=== PATIENT | male | born 1985 | race Caucasian/White ===

== ENCOUNTER 2018-06-30 19:35 | Inpatient (IN) | payer MEDICAID ==
[~2018-06-30] VITALS: Ht 188 cm; Wt 109.9 kg
[2018-06-30 21:47] LABS: BASOPHILS % (AUTO) 1.1 % (0.0-2.0); EOSINOPHILS % (AUTO) 1.1 % (1.0-6.0); HEMATOCRIT 45.5 % (41-53); HEMOGLOBIN 14.9 g/dL (13.5-17.5); LYMPHOCYTES % (AUTO) 20.4 % (22.0-44.0); MEAN CORPUSCULAR HEMOGLOBIN 27.3 pg (26.0-34.0); MEAN CORPUSCULAR HGB CONC 32.8 G/dL (31.0-37.0); MEAN CORPUSCULAR VOLUME 83 fL (80-100); MONOCYTES # (AUTO) 1.3 K/uL (0.1-1.0); MONOCYTES % (AUTO) 8.9 % (2.0-9.0); NEUTROPHILS # (AUTO) 10.2 K/uL (1.8-7.7); NEUTROPHILS % (AUTO) 68.5 % (40.0-70.0); PLATELET COUNT (AUTO) 335 K/uL (150-450); RED BLOOD CELL COUNT(AUTO) 5.47 MIL/uL (4.50-5.90); RED CELL DISTRIBUTION WIDTH 14.5 % (11.5-14.5)
[2018-06-30 21:59] LABS: ANION GAP 12 mmol/L (8-16); CARBON DIOXIDE 28 mmol/L (22-29); CHLORIDE 95 mmol/L (98-107); CREATININE 1.18 mg/dL (0.60-1.30); GLOMERULAR FILTR. RATE CALC > 60 mL/min (>60); GLUCOSE,RANDOM 152 mg/dL (70-110); POTASSIUM 3.7 mmol/L (3.5-5.1); SODIUM SERUM 135 mmol/L (136-145); UREA NITROGEN, BLOOD 18 mg/dL (7-18)
[2018-06-30 22:06] LABS: ALANINE AMINOTRANSFERASE 57 U/L (12-78); ALBUMIN 4.2 g/dL (3.4-5.0); ALKALINE PHOSPHATASE 76 U/L (46-116); ASPARTATE AMINOTRANSFERASE 86 U/L (15-37); BILIRUBIN,TOTAL 0.7 mg/dL (0.1-1.0); TOTAL PROTEIN, SERUM 8.4 g/dL (6.4-8.2)
[2018-06-30 22:36] LABS: AMPHET/METH SCREEN,URINE POSITIVE (NEGATIVE); BARBITURATE SCREEN, URINE NEGATIVE (NEGATIVE); BENZODIAZEPINES SCREEN,URINE POSITIVE (NEGATIVE); CANNABINOID SCREEN,URINE NEGATIVE (NEGATIVE); COCAINE SCREEN,URINE NEGATIVE (NEGATIVE); METHADONE SCREEN, URINE NEGATIVE (NEGATIVE); OPIATE SCREEN,URINE NEGATIVE (NEGATIVE); PHENCYCLIDINE SCREEN,URINE NEGATIVE (NEGATIVE)
[2018-06-30] MEDS ORDERED: ZOLPIDEM TARTRATE 10 MG TABLET PO PRN (22:45)
[2018-06-30] MEDS ORDERED: DiphenhydrAMINE HCL 25 MG CAPSULE PO ONE (23:00)
[2018-06-30] MEDS ORDERED: LORazepam 2 MG TABLET PO ONE (23:00)
[2018-06-30] MEDS ORDERED: HALOPERIDOL 5 MG TABLET PO ONE (23:00)
[2018-06-30 23:40] LABS: APPEARANCE,URINE CLOUDY (CLEAR); BILIRUBIN,URINE NEGATIVE (NEGATIVE); GLUCOSE, URINE (UA) NEGATIVE (NEGATIVE); KETONES,URINE TRACE mg/dL (NEGATIVE); LEUKOCYTE ESTERASE ,URINE NEGATIVE (NEGATIVE); NITRATE,URINE NEGATIVE (NEGATIVE); OCCULT BLOOD,URINE NEGATIVE (NEGATIVE); PH,URINE 5.5 (5.0-8.0); PROTEIN,URINE POS 1+ (NEGATIVE); UROBILINOGEN,URINE 0.2 mg/dL (<=1.0)
[2018-07-01 02:13] VITALS: BP 158/75
[2018-07-01 08:00] LABS: BASOPHILS % (AUTO) 0.8 % (0.0-2.0); EOSINOPHILS % (AUTO) 3.9 % (1.0-6.0); HEMOGLOBIN 12.9 g/dL (13.5-17.5); LYMPHOCYTES # (AUTO) 2.7 K/uL (1.0-4.8); LYMPHOCYTES % (AUTO) 24.4 % (22.0-44.0); MEAN CORPUSCULAR HEMOGLOBIN 27.6 pg (26.0-34.0); MEAN CORPUSCULAR HGB CONC 33.9 G/dL (31.0-37.0); MEAN CORPUSCULAR VOLUME 81 fL (80-100); MONOCYTES # (AUTO) 1.3 K/uL (0.1-1.0); MONOCYTES % (AUTO) 11.7 % (2.0-9.0); NEUTROPHILS # (AUTO) 6.6 K/uL (1.8-7.7); NEUTROPHILS % (AUTO) 59.2 % (40.0-70.0); PLATELET COUNT (AUTO) 265 K/uL (150-450); RED BLOOD CELL COUNT(AUTO) 4.67 MIL/uL (4.50-5.90); RED CELL DISTRIBUTION WIDTH 14.6 % (11.5-14.5)
[2018-07-01 08:05] VITALS: BP 106/68
[2018-07-01 08:09] LABS: HEMOGLOBIN A1C 6.2 % (4.5-6.2)
[2018-07-01 08:35] LABS: CHOL/HDL RATIO 3.8 (4.2-7.3); FREE T4 (FREE THYROXINE) 1.14 ng/dL (0.76-1.46); THYROID STIMULATING HORMONE 4.08 uIU/mL (0.36-3.74)
[2018-07-01] MEDS: CEPHALEXIN MONOHYDRATE 500 MG CAPSULE PO SCH ×4 (08:55→20:35)
[2018-07-01 15:00] VITALS: BP 152/91
[2018-07-01] MEDS: LORazepam 2 MG TABLET PO PRN (15:10)
[2018-07-01] MEDS: HALOPERIDOL 5 MG TABLET PO PRN (15:10)
[2018-07-01 16:16] VITALS: BP 140/95
[2018-07-01] MEDS: RisperiDONE 2 MG TABLET PO SCH (16:16)
[2018-07-01] MEDS ORDERED: IBUPROFEN 600 MG TABLET PO PRN (22:00)
[2018-07-01] MEDS ORDERED: MAG HYDROX/AL HYDROX/SIMETH ES 30 ML SUSPENSION UDCUP PO PRN (22:00)
[2018-07-01] MEDS ORDERED: ACETAMINOPHEN 325 MG TABLET PO PRN (22:00)
[2018-07-01] MEDS ORDERED: ONDANSETRON HCL 4 MG TABLET PO PRN (22:00)
[2018-07-01] MEDS ORDERED: BENZOCAINE/MENTHOL LOZENGE MM PRN (22:00)
[2018-07-01] MEDS ORDERED: LOPERAMIDE HCL 2 MG CAPSULE PO PRN (22:00)
[2018-07-01] MEDS ORDERED: BACITRACIN 28.4 GM OINTMENT TP PRN (22:00)
[2018-07-01] MEDS ORDERED: MAGNESIUM HYDROXIDE SUSPENSION 30 ML UDCUP PO PRN (22:00)
[2018-07-01] MEDS ORDERED: PETROLATUM,WHITE 71 GM JELLY TP PRN (22:00)
[2018-07-01] MEDS ORDERED: ALBUTEROL SULFATE HFA 90 MCG/PUFF 8 GM INHALER IH PRN (22:00)
[2018-07-01] MEDS ORDERED: CloNIDine HCL 0.1 MG TABLET PO PRN (22:00)
[2018-07-02] MEDS: LEVOTHYROXINE SODIUM 50 MCG TABLET PO SCH (06:52)
[2018-07-02 07:14] VITALS: BP 126/77
[2018-07-02] MEDS: RisperiDONE 2 MG TABLET PO SCH ×2 (08:50→16:28)
[2018-07-02] MEDS: OMEPRAZOLE 20 MG CAPSULE PO SCH (08:50)
[2018-07-02] MEDS: DOCUSATE SODIUM 100 MG CAPSULE PO SCH (08:50)
[2018-07-02] MEDS: CEPHALEXIN MONOHYDRATE 500 MG CAPSULE PO SCH ×4 (08:50→20:33)
[2018-07-02] MEDS: SODIUM CHLORIDE 1 GM TABLET PO SCH ×2 (08:50→16:56)
[2018-07-02] MEDS: OMEGA-3/DHA/EPA/FISH OIL 1,000 MG CAPSULE PO SCH (08:51)
[2018-07-02 16:07] VITALS: BP 125/62
[2018-07-02] MEDS: LORazepam 2 MG TABLET PO PRN (16:28)
[2018-07-02] MEDS: HALOPERIDOL 5 MG TABLET PO PRN (17:36)
[2018-07-02 18:24] LABS: GLUCOMETER DEV NAME(LOC) BV2X.; GLUCOSE,POINT OF CARE 141 MG/DL (70-110)
[2018-07-02] MEDS ORDERED: GLUCAGON,HUMAN RECOMBINANT 1 MG VIAL IM PRN (19:30)
[2018-07-02] MEDS ORDERED: INSULIN LISPRO 100 UNITS/ML SQ PRN (19:30)
[2018-07-02 21:30] LABS: GLUCOMETER DEV NAME(LOC) BV2X.; GLUCOSE,POINT OF CARE 122 MG/DL (70-110)
[2018-07-03 00:37] VITALS: BP 125/67
[2018-07-03] MEDS: MetFORMIN HCL 500 MG TABLET PO SCH ×2 (06:35→16:04)
[2018-07-03] MEDS: LEVOTHYROXINE SODIUM 50 MCG TABLET PO SCH (06:35)
[2018-07-03 06:49] LABS: GLUCOMETER DEV NAME(LOC) BV2X.; GLUCOSE,POINT OF CARE 115 MG/DL (70-110)
[2018-07-03 08:00] LABS: HEMATOCRIT 41.7 % (41-53); HEMOGLOBIN 13.6 g/dL (13.5-17.5); MEAN CORPUSCULAR HEMOGLOBIN 27.1 pg (26.0-34.0); MEAN CORPUSCULAR HGB CONC 32.5 G/dL (31.0-37.0); MEAN CORPUSCULAR VOLUME 84 fL (80-100); PLATELET COUNT (AUTO) 239 K/uL (150-450); RED CELL DISTRIBUTION WIDTH 13.9 % (11.5-14.5)
[2018-07-03] MEDS: DOCUSATE SODIUM 100 MG CAPSULE PO SCH (08:07)
[2018-07-03] MEDS: RisperiDONE 2 MG TABLET PO SCH ×2 (08:07→16:04)
[2018-07-03] MEDS: OMEPRAZOLE 20 MG CAPSULE PO SCH (08:07)
[2018-07-03] MEDS: OMEGA-3/DHA/EPA/FISH OIL 1,000 MG CAPSULE PO SCH (08:07)
[2018-07-03] MEDS: CEPHALEXIN MONOHYDRATE 500 MG CAPSULE PO SCH ×4 (08:07→20:03)
[2018-07-03 08:16] VITALS: BP 117/69
[2018-07-03 08:25] LABS: ANION GAP 5 mmol/L (8-16); CALCIUM, TOTAL 8.6 mg/dL (8.8-10.5); CARBON DIOXIDE 30 mmol/L (22-29); CHLORIDE 105 mmol/L (98-107); CREATININE 0.81 mg/dL (0.60-1.30); GLOMERULAR FILTR. RATE CALC > 60 mL/min (>60); GLUCOSE,RANDOM 91 mg/dL (70-110); POTASSIUM 4.6 mmol/L (3.5-5.1); SODIUM SERUM 140 mmol/L (136-145); THYROID STIMULATING HORMONE 1.29 uIU/mL (0.36-3.74); UREA NITROGEN, BLOOD 13 mg/dL (7-18)
[2018-07-03 09:19] LABS: BAND NEUTROPHILS % (MANUAL) 1 % (0-5); EOSINOPHILS % (MANUAL) 6 % (1-6); LYMPHOCYTES % (MANUAL) 35 % (22-44); MONOCYTES % (MANUAL) 5 % (2-9); SEGMENTED NEUTROPHILS % 53 % (40-70)
[2018-07-03 12:14] LABS: GLUCOMETER DEV NAME(LOC) BV2X.; GLUCOSE,POINT OF CARE 115 MG/DL (70-110)
[2018-07-03] MEDS: LORazepam 2 MG TABLET PO PRN ×2 (12:57→20:03)
[2018-07-03] MEDS: HALOPERIDOL 5 MG TABLET PO PRN ×2 (14:05→20:03)
[2018-07-03 16:17] VITALS: BP 141/82
[2018-07-03 16:50] VITALS: BP 138/80
[2018-07-03 17:19] LABS: GLUCOMETER DEV NAME(LOC) BV2X.; GLUCOSE,POINT OF CARE 105 MG/DL (70-110)
[2018-07-03 20:19] LABS: GLUCOMETER DEV NAME(LOC) BV2X.; GLUCOSE,POINT OF CARE 111 MG/DL (70-110)
[2018-07-04 06:23] VITALS: BP 124/90
[2018-07-04 06:29] LABS: GLUCOMETER DEV NAME(LOC) BV2X.; GLUCOSE,POINT OF CARE 103 MG/DL (70-110)
[2018-07-04] MEDS: MetFORMIN HCL 500 MG TABLET PO SCH ×2 (06:57→16:34)
[2018-07-04] MEDS: LEVOTHYROXINE SODIUM 50 MCG TABLET PO SCH (06:57)
[2018-07-04 08:09] VITALS: BP 115/64
[2018-07-04] MEDS: OMEPRAZOLE 20 MG CAPSULE PO SCH (08:35)
[2018-07-04] MEDS: DOCUSATE SODIUM 100 MG CAPSULE PO SCH (08:35)
[2018-07-04] MEDS: RisperiDONE 2 MG TABLET PO SCH ×2 (08:35→16:57)
[2018-07-04] MEDS: CEPHALEXIN MONOHYDRATE 500 MG CAPSULE PO SCH ×3 (08:35→16:51)
[2018-07-04] MEDS: OMEGA-3/DHA/EPA/FISH OIL 1,000 MG CAPSULE PO SCH (08:36)
[2018-07-04 11:15] LABS: GLUCOMETER DEV NAME(LOC) BV2X.; GLUCOSE,POINT OF CARE 104 MG/DL (70-110)
[2018-07-04] MEDS: LORazepam 2 MG TABLET PO PRN (14:54)
[2018-07-04 15:20] VITALS: BP 130/90
[2018-07-04] MEDS ORDERED: RISP1TAB26 PO (16:04)
[2018-07-04] MEDS ORDERED: CEPH-582 PO (16:05)
[2018-07-04] MEDS ORDERED: METF-960 PO (16:06)
[2018-07-04] MEDS ORDERED: OMEG-12 PO (16:07)
[2018-07-04] MEDS ORDERED: DSS100 PO (16:07)
[2018-07-04 16:08] VITALS: BP 135/89
[2018-07-04] MEDS ORDERED: OMEP20 PO (16:08)
[2018-07-04] MEDS ORDERED: LEVO50TA11 PO (16:08)
[2018-07-04] MEDS ORDERED: MICO15CR4 TP (16:15)
[2018-07-04] MEDS ORDERED: MICONAZOLE NITRATE 2% 30 GM CREAM TP SCH (17:00)
== END 2018-07-04 17:30 | disposition home or self-care (01) | DRG 750 ==
LOC: EMS 19:36 → B2S 23:09
PROVIDERS: ADMIT Psychiatry & Neurology Child & Adolescent Psychiatry; ATTEND Psychiatry & Neurology Psychiatry
DX: F20.0 Paranoid schizophrenia (principal); E87.1 Hypo-osmolality and hyponatremia; R45.851 Suicidal ideations; E78.1 Pure hyperglyceridemia; E78.5 Hyperlipidemia, unspecified; F15.10 Other stimulant abuse, uncomplicated; F17.200 Nicotine dependence, unspecified, uncomplicated; K42.9 Umbilical hernia without obstruction or gangrene; L08.9 Local infection of the skin and subcutaneous tissue, unspecified; E11.9 Type 2 diabetes mellitus without complications
CPT/HCPCS: 83036; 84439; 84443; 85007; 87081; 99406; G0480

== ENCOUNTER 2019-07-18 00:13 | Inpatient (IN) | payer MEDICAID ==
[~2019-07-18] VITALS: Ht 188 cm; Wt 127.0 kg
[~2019-07-18 00:13] MED LIST: CEPH-582 PO; DSS100 PO; LEVO50TA11 PO; METF-960 PO; MICO15CR4 TP; OMEG-12 PO; OMEP20 PO; RISP1TAB26 PO
[2019-07-18 05:07] VITALS: BP 117/70
[2019-07-18] MEDS ORDERED: INFLUENZA VIRUS VACCINE QVS 2019-20 (3YR+)/PF 60 MCG/0.5 ML SYRINGE IM ONE (05:15)
[2019-07-18] MEDS ORDERED: DOCUSATE SODIUM 100 MG CAPSULE PO PRN (07:15)
[2019-07-18] MEDS ORDERED: LOPERAMIDE HCL 2 MG CAPSULE PO PRN (07:15)
[2019-07-18] MEDS ORDERED: ALBUTEROL SULFATE HFA 90 MCG/PUFF 8 GM INHALER IH PRN (07:15)
[2019-07-18] MEDS ORDERED: CloNIDine HCL 0.1 MG TABLET PO PRN (07:15)
[2019-07-18] MEDS ORDERED: MAGNESIUM HYDROXIDE SUSPENSION 30 ML UDCUP PO PRN (07:15)
[2019-07-18] MEDS ORDERED: ACETAMINOPHEN 325 MG TABLET PO PRN (07:15)
[2019-07-18] MEDS ORDERED: PETROLATUM,WHITE 28 GM JELLY TP PRN (07:15)
[2019-07-18] MEDS ORDERED: IBUPROFEN 400 MG TABLET PO PRN (07:15)
[2019-07-18] MEDS ORDERED: ONDANSETRON HCL 4 MG TABLET PO PRN (07:15)
[2019-07-18] MEDS ORDERED: GuaiFENesin/D-METHORPHAN [SUGAR-FREE] 200-20MG/10 ML SYRUP UDCUP PO PRN (07:15)
[2019-07-18] MEDS ORDERED: MAG HYDROX/AL HYDROX/SIMETH ES 30 ML SUSPENSION UDCUP PO PRN (07:15)
[2019-07-18] MEDS ORDERED: NICOTINE 14 MG/24 HOUR PATCH TD PRN (07:15)
[2019-07-18 08:17] VITALS: BP 140/69
[2019-07-18] MEDS: LORazepam 1 MG TABLET PO PRN ×2 (13:35→17:40)
[2019-07-18 16:09] VITALS: BP 126/60
[2019-07-18] MEDS: MetFORMIN HCL 500 MG TABLET PO SCH (17:39)
[2019-07-18] MEDS: HALOPERIDOL 5 MG TABLET PO PRN (17:40)
[2019-07-18] MEDS: ZOLPIDEM TARTRATE 10 MG TABLET PO PRN (21:37)
[2019-07-18] MEDS: RisperiDONE 2 MG TABLET PO SCH (22:14)
[2019-07-19 05:29] VITALS: BP 139/71
[2019-07-19] MEDS: MetFORMIN HCL 500 MG TABLET PO SCH ×2 (07:00→16:45)
[2019-07-19] MEDS: ESCITALOPRAM OXALATE 20 MG TABLET PO SCH (08:53)
[2019-07-19] MEDS: LORazepam 1 MG TABLET PO PRN ×3 (09:07→19:00)
[2019-07-19 11:35] LABS: GLUCOMETER DEV NAME(LOC) BV3S.; GLUCOSE,POINT OF CARE 112 MG/DL (70-110)
[2019-07-19] MEDS: HALOPERIDOL 5 MG TABLET PO PRN (16:46)
[2019-07-19 17:26] LABS: GLUCOMETER DEV NAME(LOC) BV3S.; GLUCOSE,POINT OF CARE 110 MG/DL (70-110)
[2019-07-19] MEDS: RisperiDONE 2 MG TABLET PO SCH (21:40)
[2019-07-19] MEDS: ZOLPIDEM TARTRATE 10 MG TABLET PO PRN (21:40)
[2019-07-20 01:11] VITALS: BP 122/59
[2019-07-20 06:19] LABS: GLUCOMETER DEV NAME(LOC) BV3S.; GLUCOSE,POINT OF CARE 117 MG/DL (70-110)
[2019-07-20] MEDS: MetFORMIN HCL 500 MG TABLET PO SCH ×2 (06:29→17:16)
[2019-07-20] MEDS: ESCITALOPRAM OXALATE 20 MG TABLET PO SCH (08:56)
[2019-07-20 11:29] LABS: GLUCOMETER DEV NAME(LOC) BV3S.; GLUCOSE,POINT OF CARE 110 MG/DL (70-110)
[2019-07-20] MEDS: LORazepam 1 MG TABLET PO PRN ×4 (14:10→22:27)
[2019-07-20] MEDS: HALOPERIDOL 5 MG TABLET PO PRN ×2 (17:16→22:27)
[2019-07-20] MEDS: ZOLPIDEM TARTRATE 10 MG TABLET PO PRN (20:13)
[2019-07-20] MEDS: RisperiDONE 2 MG TABLET PO SCH (20:13)
[2019-07-21 06:26] LABS: GLUCOMETER DEV NAME(LOC) BV3S.; GLUCOSE,POINT OF CARE 110 MG/DL (70-110)
[2019-07-21] MEDS: MetFORMIN HCL 500 MG TABLET PO SCH ×2 (06:30→16:38)
[2019-07-21 08:17] VITALS: BP 108/61
[2019-07-21] MEDS: ESCITALOPRAM OXALATE 20 MG TABLET PO SCH (08:54)
[2019-07-21] MEDS: HALOPERIDOL 5 MG TABLET PO PRN ×2 (11:46→16:38)
[2019-07-21] MEDS: LORazepam 1 MG TABLET PO PRN ×3 (11:46→20:14)
[2019-07-21 11:51] VITALS: BP 128/66
[2019-07-21 12:07] LABS: GLUCOMETER DEV NAME(LOC) BV3S.; GLUCOSE,POINT OF CARE 115 MG/DL (70-110)
[2019-07-21 18:00] VITALS: BP 117/61
[2019-07-21] MEDS: RisperiDONE 2 MG TABLET PO SCH (20:14)
[2019-07-21] MEDS: ZOLPIDEM TARTRATE 10 MG TABLET PO PRN (20:14)
[2019-07-22] MEDS: MetFORMIN HCL 500 MG TABLET PO SCH ×2 (06:30→16:17)
[2019-07-22 06:31] LABS: GLUCOMETER DEV NAME(LOC) BV3S.; GLUCOSE,POINT OF CARE 109 MG/DL (70-110)
[2019-07-22 07:06] VITALS: BP 136/88
[2019-07-22 08:22] VITALS: BP 100/75
[2019-07-22] MEDS: ESCITALOPRAM OXALATE 20 MG TABLET PO SCH (08:35)
[2019-07-22 11:50] LABS: GLUCOMETER DEV NAME(LOC) BV3S.; GLUCOSE,POINT OF CARE 105 MG/DL (70-110)
[2019-07-22] MEDS: LORazepam 1 MG TABLET PO PRN ×3 (12:10→20:58)
[2019-07-22] MEDS: HALOPERIDOL 5 MG TABLET PO PRN (12:10)
[2019-07-22 20:07] VITALS: BP 120/74
[2019-07-22] MEDS: RisperiDONE 2 MG TABLET PO SCH (20:13)
[2019-07-22] MEDS: ZOLPIDEM TARTRATE 10 MG TABLET PO PRN (20:58)
[2019-07-23 00:03] VITALS: BP 145/72
[2019-07-23] MEDS: MetFORMIN HCL 500 MG TABLET PO SCH ×2 (06:38→16:16)
[2019-07-23 08:18] VITALS: BP 126/70
[2019-07-23] MEDS: LORazepam 1 MG TABLET PO PRN ×4 (08:44→20:17)
[2019-07-23] MEDS: ESCITALOPRAM OXALATE 20 MG TABLET PO SCH (08:44)
[2019-07-23 12:20] LABS: GLUCOMETER DEV NAME(LOC) BV3S.; GLUCOSE,POINT OF CARE 102 MG/DL (70-110)
[2019-07-23 16:04] VITALS: BP 132/68
[2019-07-23] MEDS: ZOLPIDEM TARTRATE 10 MG TABLET PO PRN (20:17)
[2019-07-23] MEDS: RisperiDONE 2 MG TABLET PO SCH (20:17)
[2019-07-24 04:26] VITALS: BP 140/80
[2019-07-24] MEDS: MetFORMIN HCL 500 MG TABLET PO SCH ×2 (06:36→16:38)
[2019-07-24 08:35] VITALS: BP 117/60
[2019-07-24] MEDS: LORazepam 1 MG TABLET PO PRN ×5 (08:56→20:49)
[2019-07-24] MEDS: ESCITALOPRAM OXALATE 20 MG TABLET PO SCH (08:56)
[2019-07-24 11:50] LABS: GLUCOMETER DEV NAME(LOC) BV3S.; GLUCOSE,POINT OF CARE 116 MG/DL (70-110)
[2019-07-24] MEDS: NICOTINE 21 MG/24 HOUR PATCH TD SCH (11:59)
[2019-07-24 16:00] VITALS: BP 115/65
[2019-07-24] MEDS: RisperiDONE 2 MG TABLET PO SCH (20:50)
[2019-07-24] MEDS: ZOLPIDEM TARTRATE 10 MG TABLET PO PRN (20:50)
[2019-07-25 01:24] VITALS: BP 128/72
[2019-07-25] MEDS: MetFORMIN HCL 500 MG TABLET PO SCH ×2 (06:15→17:00)
[2019-07-25 08:29] VITALS: BP 119/59
[2019-07-25] MEDS: NICOTINE 21 MG/24 HOUR PATCH TD SCH (09:00)
[2019-07-25] MEDS: ESCITALOPRAM OXALATE 20 MG TABLET PO SCH (09:25)
[2019-07-25] MEDS: LORazepam 2 MG TABLET PO PRN (10:57)
[2019-07-25 11:46] LABS: GLUCOMETER DEV NAME(LOC) BV3S.; GLUCOSE,POINT OF CARE 108 MG/DL (70-110)
[2019-07-25 16:04] VITALS: BP 136/74
[2019-07-25] MEDS: RisperiDONE 2 MG TABLET PO SCH (20:28)
[2019-07-25] MEDS: LORazepam 1 MG TABLET PO PRN (20:35)
[2019-07-25 20:53] LABS: GLUCOMETER DEV NAME(LOC) BV3S.; GLUCOSE,POINT OF CARE 115 MG/DL (70-110)
[2019-07-26 00:58] VITALS: BP 122/65
[2019-07-26] MEDS: MetFORMIN HCL 500 MG TABLET PO SCH ×2 (06:01→17:00)
[2019-07-26 08:27] VITALS: BP 108/62
[2019-07-26] MEDS: OMEGA-3/DHA/EPA/FISH OIL 1,000 MG CAPSULE PO SCH (09:22)
[2019-07-26] MEDS: ESCITALOPRAM OXALATE 20 MG TABLET PO SCH (09:22)
[2019-07-26] MEDS: NICOTINE 21 MG/24 HOUR PATCH TD SCH (09:22)
[2019-07-26 10:50] LABS: GLUCOMETER DEV NAME(LOC) BV3S.; GLUCOSE,POINT OF CARE 81 MG/DL (70-110)
[2019-07-26] MEDS: LORazepam 2 MG TABLET PO PRN ×3 (11:03→20:23)
[2019-07-26 16:03] VITALS: BP 114/64
[2019-07-26] MEDS: RisperiDONE 2 MG TABLET PO SCH (20:23)
[2019-07-27 05:27] VITALS: BP 129/73
[2019-07-27] MEDS: MetFORMIN HCL 500 MG TABLET PO SCH (07:00)
[2019-07-27] MEDS: ESCITALOPRAM OXALATE 20 MG TABLET PO SCH ×2 (08:20→09:01)
[2019-07-27] MEDS: NICOTINE 21 MG/24 HOUR PATCH TD SCH ×2 (08:20→09:01)
[2019-07-27] MEDS: OMEGA-3/DHA/EPA/FISH OIL 1,000 MG CAPSULE PO SCH ×2 (08:20→09:01)
[2019-07-27] MEDS ORDERED: ESCI20TA PO (14:41)
[2019-07-27] MEDS ORDERED: RISP2TAB76 PO (14:41)
== END 2019-07-27 15:25 | disposition home or self-care (01) | DRG 751 ==
LOC: B3A 04:10
PROVIDERS: ADMIT Psychiatry & Neurology Psychiatry; ATTEND Psychiatry & Neurology Psychiatry
DX: F33.2 Major depressive disorder, recurrent severe without psychotic features (principal); E11.9 Type 2 diabetes mellitus without complications; R45.851 Suicidal ideations; E03.9 Hypothyroidism, unspecified; K21.9 Gastro-esophageal reflux disease without esophagitis; K59.00 Constipation, unspecified; F17.200 Nicotine dependence, unspecified, uncomplicated; F41.1 Generalized anxiety disorder; F41.9 Anxiety disorder, unspecified; Z71.6 Tobacco abuse counseling; Z91.19 Patient's noncompliance with other medical treatment and regimen
CPT/HCPCS: 84439; 87081; J3535

== ENCOUNTER 2023-03-06 09:33 | Emergency (ER) | payer MEDICAID ==
[~2023-03-06] VITALS: Ht 185.4 cm; Wt 97.7 kg
[~2023-03-06 09:33] MED LIST changes: -CEPH-582 PO; -DSS100 PO; +ESCI20TA87 PO; +FENO48TA12 PO; -LEVO50TA11 PO; +LISI-893 PO; +METF-1211 PO; -METF-960 PO; -MICO15CR4 TP; +OLAN10TA74 PO; -OMEG-12 PO; -OMEP20 PO; -RISP1TAB26 PO
[2023-03-06 09:36] VITALS: BP 148/94; PULSE 98; RESP 16; TEMP 98.4
[2023-03-06 10:21] LABS: EOSINOPHILS % (AUTO) 1.2 % (1.0-6.0); HEMATOCRIT 44.5 % (41-53); HEMOGLOBIN 14.6 g/dL (13.5-17.5); LYMPHOCYTES # (AUTO) 3.2 K/uL (1.0-4.8); MEAN CORPUSCULAR HEMOGLOBIN 26.1 pg (26.0-34.0); MEAN CORPUSCULAR HGB CONC 32.8 G/dL (31.0-37.0); MEAN CORPUSCULAR VOLUME 80 fL (80-100); MONOCYTES % (AUTO) 6.8 % (2.0-9.0); NEUTROPHILS # (AUTO) 10.1 K/uL (1.8-7.7); PLATELET COUNT (AUTO) 359 K/uL (150-450); RED BLOOD CELL COUNT(AUTO) 5.58 MIL/uL (4.50-5.90); RED CELL DISTRIBUTION WIDTH 15.5 % (11.5-14.5); WHITE BLOOD COUNT (AUTO) 14.6 K/uL (4.5-11.0)
[2023-03-06 10:36] LABS: COVID AG,FIA SOURCE NASOPHARYNGEAL
[2023-03-06 10:41] LABS: ANION GAP 12 mmol/L (8-16); CALCIUM, TOTAL 9.2 mg/dL (8.8-10.5); CARBON DIOXIDE 25 mmol/L (22-29); CHLORIDE 97 mmol/L (98-107); CREATININE 0.88 mg/dL (0.60-1.30); GLOMERULAR FILTR. RATE CALC > 60 mL/min (>60); GLUCOSE,RANDOM 164 mg/dL (70-110); POTASSIUM 3.6 mmol/L (3.5-5.1); SODIUM SERUM 134 mmol/L (136-145); UREA NITROGEN, BLOOD 9 mg/dL (7-18)
[2023-03-06 10:47] LABS: ALANINE AMINOTRANSFERASE 51 U/L (12-78); ALBUMIN 4.1 g/dL (3.4-5.0); ALKALINE PHOSPHATASE 128 U/L (46-116); ASPARTATE AMINOTRANSFERASE 26 U/L (15-37); BILIRUBIN,TOTAL 0.6 mg/dL (0.1-1.0); TOTAL PROTEIN, SERUM 8.3 g/dL (6.4-8.2)
[2023-03-06 11:06] LABS: ALCOHOL, BLOOD (SERUM) < 3 mg/dL (0-10)
[2023-03-06 11:10] LABS: SARS-COV2 (COVID) ANTIGEN,FIA Negative (Negative)
== END 2023-03-06 12:30 | disposition home or self-care (01) ==
LOC: EMS 09:38
DX: F20.9 Schizophrenia, unspecified (principal); F15.90 Other stimulant use, unspecified, uncomplicated; F17.210 Nicotine dependence, cigarettes, uncomplicated; F32.A Depression, unspecified; Z59.00 Homelessness unspecified; Z20.822 Contact with and (suspected) exposure to COVID-19
CPT/HCPCS: 99284; 87426; 99406; 80053; 85025; 36415; G0480